=== PATIENT | male | born 1980 | race Caucasian/White ===

== ENCOUNTER 2024-03-22 19:43 | Emergency (ER) | payer OTHER ==
[2024-03-22] MEDS ORDERED: Ketorolac Tromethamine 30 MG (1 mL) VIAL ONE (20:24)
[2024-03-22] MEDS ORDERED: Gabapentin 300 MG CAP ONE (21:08)
== END 2024-03-22 21:15 ==
LOC: ERS 19:43 → EEVIPCON 19:43 → ERS 21:15
DX: M54.42 Lumbago with sciatica, left side (principal); W19.XXXA Unspecified fall, initial encounter; Y93.01 Activity, walking, marching and hiking
CPT/HCPCS: 72131; 96372; J1885